=== PATIENT | female | born 1980 | race Caucasian/White ===

== ENCOUNTER 2019-04-17 12:31 | Outpatient (CLI) | payer BC, MEDICARE, SELFPAY ==
--- NOTE | ~2019-04-17 | US_ITS ---
EXAMINATION: US retroperitoneal comp EXAM DATE: 04/17/2019 13:09 INDICATION: Hematuria. TECHNIQUE: Multiple grayscale and Doppler images of the kidneys were obtained (by a technologist who performed the scan) and subsequently reviewed. There is no prior study for comparison. FINDINGS: Right kidney: There is normal contour and echogenicity. It measures 9.2 x 4.2 x 4.7 centimeters. Th ere are no focal renal lesions identified. There is no hydronephrosis. Left kidney: There is normal contour and echogenicity. It measures 8.2 x 4.8 x 4.6 centimeters. The re are no focal renal lesions identified. Mild hydronephrosis. Bladder unremarkable. Ureteral jets were identified bilaterally. IMPRESSION: 1. Mild left hydronephrosis, but both ureteral jets were confirmed. Reviewed, dictated and finalized at location A. RAM DIRECTOR/TRAFFIC DIRECTOR
== END 2019-04-17 12:32 | disposition home or self-care (01) ==
PROVIDERS: PCP Urology; Visit Provider Urology
DX: R31.29 Other microscopic hematuria (principal)
CPT/HCPCS: 76770

== ENCOUNTER → 2020-08-28 09:34 | Outpatient (CLI) | payer BC, MEDICARE, SELFPAY ==
--- NOTE | ~2020-08-28 | MM_ITS ---
EXAMINATION: MM screening priya BI w maria eugenia HISTORY: Screening mammogram TECHNIQUE: Craniocaudal and mediolateral oblique 3-D tomosynthesis images were obtained and synthetic 2-D images were generated. CAD analysis was submitted and interpreted. COMPARISON: 01/05/2019, 12/13/2018 BREAST PARENCHYMAL COMPOSITION: The breasts are heterogeneously dense, which may obscure small masses . FINDINGS: RIGHT BREAST: There is no evidence of suspicious mass, calcification, or architectural distortion to suggest malignancy. There has been no significant interval change. LEFT BREAST: There are low density masses in the anterior and middle thirds of the upper outer quadra nt of the breast 2 cm and 9 cm from the nipple, respectively. IMPRESSION: 1. Left breast masses which could reflect cysts given the multiplicity of cysts seen on prior diagnos tic mammogram 2. Additional mammographic views and possible breast ultrasound are recommended. BI-RADS Category 0: Incomplete: Needs additional imaging evaluation. Reviewed, dictated and finalized at location A. IMPRESSION: 1. Left breast masses which could reflect cysts given the multiplicity of cysts seen on prior diagnostic mammogram 2. Additional mammographic views and possible breast ultrasound are recommended . BI-RADS Category 0: Incomplete: Needs additional imaging evaluation.
== END ==
DX: Z12.31 Encounter for screening mammogram for malignant neoplasm of breast (principal); R92.8 Other abnormal and inconclusive findings on diagnostic imaging of breast
CPT/HCPCS: 77063; 77067

== ENCOUNTER → 2020-09-26 09:14 | Outpatient (CLI) | payer BC, MEDICARE, SELFPAY ==
--- NOTE | ~2020-09-26 | MMUS_ITS ---
EXAMINATION: MM diagnostic mammo unilat LT, US breast LT limited HISTORY: Left breast masses on screening mammogram TECHNIQUE: Additional 3-D tomosynthesis images of the left breast were performed and synthetic 2-D im ages were generated. CAD analysis was submitted and interpreted. High resolution limited left breast ultrasound was performed. COMPARISON: 08/28/2020, 01/05/2019, 12/13/2018 FINDINGS: MAMMOGRAPHIC FINDINGS: There is a 6 mm oval, obscured, low density mass in the middle third of the outer breast at the 3:00 location 8.5 cm from the nipple. There is a 7 mm oval, obscured, low density mass in the anterior thi rd of the slightly outer breast 2 cm from the nipple. ULTRASOUND: There are cysts in the upper outer quadrant of the breast at the 2:00 location 2 cm from the nipple, 2:00 location 1 cm from the nipple, and the 4:00 location 3 cm from the nipple. IMPRESSION: 1. No mammographic or sonographic evidence of malignancy. 2. Recommend routine screening mammography in one year. BI-RADS Category 2: Benign finding(s). Reviewed, dictated and finalized at location A. IMPRESSION: 1. No mammographic or sonographic evidence of malignancy. 2. Recommend routine screening mammography in one year. BI-RADS Category 2: Benign finding(s).
== END ==
DX: R92.8 Other abnormal and inconclusive findings on diagnostic imaging of breast (principal)
CPT/HCPCS: 76642; 77065

== ENCOUNTER 2021-06-12 13:22 | Outpatient (CLI) | payer BC, MEDICARE, SELFPAY ==
[2021-06-12 13:56] LABS: Potassium 4.9 mmol/L (3.5-5.1)
== END 2021-06-12 13:23 | disposition home or self-care (01) ==
PROVIDERS: Visit Provider Nurse Practitioner
DX: E87.5 Hyperkalemia (principal)
CPT/HCPCS: 36415; 84132

== ENCOUNTER 2022-02-03 18:16 | Emergency (ER) | payer BC, MEDICARE, SELFPAY ==
[2022-02-03 18:20] VITALS: BP 131/81; PULSE 98; RESP 16; TEMP 36.4; O2SAT 98
--- NOTE | 2022-02-03 18:38 | ED.FEMALEGU ---
HPI - Female Genitourinary General Chief complaint: Urogenital-Female Stated complaint: possible uti Time Seen by Provider: 02/03/22 18:36 Source: patient Mode of arrival: ambulatory Limitations: no limitations History of Present Illness HPI Narrative: 41-year-old female with a history of rheumatoid arthritis on methotrexate and Humira, recurrent urinary tract infection presents to the ER with a one week history of -- dysuria -- hematuria No fever. No flank pain. MD elicited complaint: dysuria and UTI Pertinent past history: recurrent UTIs Onset (ago): week(s) ( started 1 week ago) Location of symptoms: suprapubic Severity: mild Quality of pain: burning Consistency: intermittent Vaginal discharge: none Vaginal bleeding: none Urinary symptoms: Dysuria, Urgency, Frequency and Hematuria Exacerbating factors: none Relieving factors: none Associated symptoms: denies other symptoms Treatment prior to arrival: none Related Data Home Medications Medication Instructions Recorded Confirmed adalimumab 40 mg/0.4 mL 40 mg subcut WEEKLY 02/03/22 02/03/22 subcutaneous pen kit (Humira(CF) Pen) methotrexate sodium 2.5 mg tablet 2.5 mg PO DAILY 02/03/22 02/03/22 sertraline 100 mg tablet 100 mg PO DAILY 02/03/22 02/03/22 Allergies Allergy/AdvReac Type Severity Reaction Status Date / Time aspirin Allergy Mild OTHER Verified 02/03/22 18:28 Review of Systems Review of Systems: All systems reviewed & are unremarkable except as noted in HPI and below Constitutional: Constitutional: Reports as per HPI and Reports no additional constitutional complaints Eyes: Eyes: Reports as per HPI and Reports no additional eye complaints ENT: Reports system reviewed and no additional complaints, except as documented and Reports as per HPI Cardiovascular: Cardiovascular: Reports as per HPI and Reports no additional cardiovascular complaints Respiratory: Respiratory: Reports as per HPI and Reports no additional respiratory complaints Gastrointestinal: Gastrointestinal: Reports as per HPI and Reports no additional gastrointestinal complaints Genitourinary: Genitourinary: Reports no additional female genitourinary complaints, Reports as per HPI, Reports hematuria and Reports dysuria Comments: had Menstruation last week Musculoskeletal: Musculoskeletal: Reports no additional musculoskeletal complaints and Reports as per HPI Integumentary/Breasts: Skin/Breast: Reports system reviewed and no additional complaints, except as docu and Reports as per HPI Neurologic: Reports system reviewed and no additional complaints, except as documented and Reports as per HPI Psychiatric: Psychiatric: Reports no additional psychiatric complaints and Reports as per HPI Endocrine: Endocrine: Reports no additional endocrine complaints and Reports as per HPI Hematologic/Lymphatic: Hematologic/Lymphatic: Reports no additional hematologic/lymphatic complaints and Reports as per HPI Allergic/Immunologic: Allergic/Immunologic: Reports no additional allergic/immunologic complaints and Reports as per HPI [facility] Past Medical History Medical History (Updated 02/03/22 @ 19:56 by Jermaine Griffith MD) Recurrent UTI Rheumatoid arthritis Exam Const: General: no acute distress Nutritional Appearance: well nourished Orientation/consciousness: patient oriented x3 Limitations: no limitations HENMT: Head: normal to inspection Ears: external ears normal Face/Nose/Sinus: Normal external nose present Face and sinus: normal facial exam Mouth: Yes Normal oral and palatal mucosa present Throat: posterior oropharynx normal Eyes: Conjunctivae: conjunctivae normal Pupils: Equal, round and reactive pupils present Neck: Neck: normal visual inspection, no lymphadenopathy and no meningeal signs Chest: Chest palpation & inspection: normal inspection of the chest Resp: Effort & Inspection: normal respiratory effort Auscultation: clear to auscultation bilaterally
[2022-02-03 18:44] LABS: Add Urine Microscopic? NO; Appearance Urine Slightly Cloudy (Clear); Bilirubin Urine Negative (Negative); Blood Urine Negative (Negative); Color Urine Yellow (Yellow); Glucose Urine UA Negative (Negative); Ketones Urine Negative (Negative); Leukocyte Esterase Ur Negative (Negative); Nitrate Urine Negative (Negative); Protein Urine Negative (Negative); Specific Grav Ur >= 1.030 (1.010-1.020); Urobilinogen Urine 0.2 mg/dL (0.2-1.0)
[2022-02-03 18:49] LABS: Pregnancy On Board Control Positive; Urine Pregnancy Test Negative
[2022-02-03 19:06] LABS: Basophils Absolute Auto 0.05 K/mm3 (0.00-0.10); Basophils Percent Auto 0.7 % (0.0-1.0); Eosinophils Absolute Auto 0.15 K/mm3 (0.02-0.50); Hematocrit 42.9 % (35.0-49.0); Hemoglobin 13.5 g/dL (12.0-15.0); Immature Granulocyte Absolute 0.02 K/mm3 (0.00-0.00); Immature Granulocyte Percent A 0.3 % (0.0-0.0); Lymphocytes Percent Auto 32.6 % (18.0-42.0); Mean Corpuscular HGB Conc 31.5 g/dL (32.0-36.0); Mean Corpuscular Hemoglobin 29.2 pg (27.0-31.0); Mean Corpuscular Volume 92.7 fL (78.0-102.0); Mean Platelet Volume 9.4 fl (9.2-11.8); Monocytes Absolute Auto 0.71 K/mm3 (0.10-0.90); Monocytes Percent Auto 9.6 % (2.0-11.0); Neutrophils Percent Auto 54.8 % (50.0-70.0); Platelet Count Result 389 K/mm3 (150-420); Red Blood Count 4.63 M/mm3 (4.20-5.40); White Blood Count 7.4 K/mm3 (4.8-10.8)
[2022-02-03 19:21] LABS: Alanine Aminotransferase 24 U/L (14-59); Albumin Level 3.8 g/dL (3.4-5.0); Alkaline Phosphatase 73 U/L (46-116); Anion Gap 7 mmol/L (8-16); Aspartate Amino Transferase 16 U/L (15-37); Bilirubin,Total 0.2 mg/dL (0.00-1.00); Blood Urea Nitrogen 12 mg/dL (7-18); Calcium 8.8 mg/dL (8.5-10.1); Carbon Dioxide 29 mmol/L (21-32); Chloride 104 mmol/L (98-108); Estimated CRCL calculation 57 ml/min; Estimated Glomerular Filt Rate 60; Glucose 106 mg/dL (70-99); Osmolality Calculated 289 mOsm/kg (285-295); Partial Thromboplastin Time 27.4 SEC (23.90-30.70); Potassium 3.9 mmol/L (3.5-5.1); Prothrombin Time 10.7 Seconds (9.50-12.10); Sodium 140 mmol/L (136-145); Total Protein 7.7 g/dL (6.4-8.2)
[2022-02-03 20:05] VITALS: BP 122/76; PULSE 73; RESP 16; TEMP 37; O2SAT 100
== END 2022-02-03 20:08 | disposition home or self-care (01) ==
PROVIDERS: Emergency Provider Internal Medicine Critical Care Medicine
DX: R30.0 Dysuria (principal); M06.9 Rheumatoid arthritis, unspecified
CPT/HCPCS: 36415; 80053; 81003; 81025; 85025; 85610; 85730; 99283

== ENCOUNTER 2022-07-18 11:10 | Emergency (ER) | payer BC, MEDICARE, SELFPAY ==
--- NOTE | ~2022-07-18 | XR_ITS ---
EXAMINATION: XR chest 2V DATE: 07/18/2022 11:34 INDICATION: Cough. Hoarseness. TECHNIQUE: Frontal and lateral views of the chest were obtained. COMPARISON: Chest 2 views 05/08/2014, CT abdomen and pelvis 08/03/2018 FINDINGS: There is no pneumonia, pleural effusion, pneumothorax. The heart size is normal. IMPRESSION: 1. No acute cardiopulmonary disease. Reviewed, dictated and finalized at location A.
[2022-07-18 11:16] VITALS: BP 119/69; PULSE 95; RESP 16; TEMP 36.8; O2SAT 98
--- NOTE | 2022-07-18 12:02 | ED.GENADULT ---
HPI - General Adult General Chief complaint: Unspecified Stated complaint: sore throat Time Seen by Provider: 07/18/22 11:15 History of Present Illness HPI narrative: 42-year-old female here for evaluation of vocal hoarseness over the past several days. States that she feels a soreness in the back of her throat and feels a little tight. She denies any shortness of breath, trismus, history of allergic reactions. Has not taken any medicine for her symptoms. Also reports cough. Related Data Home Medications Medication Instructions Recorded Confirmed adalimumab 40 mg/0.4 mL 40 mg subcut WEEKLY 02/03/22 02/03/22 subcutaneous pen kit (Humira(CF) Pen) methotrexate sodium 2.5 mg tablet 2.5 mg PO DAILY 02/03/22 02/03/22 sertraline 100 mg tablet 100 mg PO DAILY 02/03/22 02/03/22 Allergies Allergy/AdvReac Type Severity Reaction Status Date / Time aspirin Allergy Mild OTHER Verified 07/18/22 11:17 Review of Systems Review of Systems: Gen: Denies fevers or chills Eyes: Denies eye pain or visual change ENT: Reports hoarseness Respiratory: Reports cough. Denies shortness of breath CV: Denies chest pain or palpitations GI: Denies abdominal pain nausea, emesis or diarrhea : denies burning, urgency, frequency or hematuria Musculoskeletal: Denies back pain or muscle pain Neuro: Denies numbness, tingling, weakness or focal weakness Skin: Denies rash Except as documented, all other systems reviewed and negative PMFSH Past Medical History Medical History Recurrent UTI Rheumatoid arthritis Exam Narrative: APPEARANCE: Well appearing, no pain in distress, well-nourished. Head: Normocephalic and atraumatic. EYES: PERRLA/EOMI, conjunctivae clear NOSE: No nasal drainage EARS: External ear normal in appearance THROAT: Oropharynx is clear. Mucous membranes are moist. No tonsillar swelling, exudates, uvular deviation. NECK: There is no adenopathy. Supple. Full range of motion of neck without pain. RESPIRATORY: Airway patent, respirations nonlabored. Clear to auscultation bilaterally, no rales, rhonchi, wheezing. CARDIOVASCULAR: Regular rate and rhythm without murmurs, rubs, or gallops. ABDOMINAL: Normoactive bowel sounds. Soft, nontender, nondistended. No rebound tenderness or guarding. MUSCULOSKELETAL: Extremities are warm and well-perfused. Moves all extremities well. No edema. NEURO: Normal speech. No focal neurologic deficits. SKIN: Skin is warm and dry. No rashes. PSYCHIATRIC: Normal affect/mood.. Course Vital Signs Vital signs: Vital Signs Temperature 98.2 F 07/18/22 11:16 Pulse Rate 95 07/18/22 11:16 Respiratory Rate 16 07/18/22 11:16 Blood Pressure 119/69 07/18/22 11:16 Pulse Oximetry 98 07/18/22 11:16 Oxygen Delivery Room Air 07/18/22 11:16 Temperature 98.2 F 07/18/22 11:16 Pulse Rate 95 07/18/22 11:16 Respiratory Rate 16 07/18/22 11:16 Blood Pressure 119/69 07/18/22 11:16 Pulse Oximetry 98 07/18/22 11:16 Oxygen Delivery Room Air 07/18/22 11:16 Medical Decision Making [facility] Narrative Medical decision making narrative: 42-year-old female here for evaluation of vocal hoarseness over the past several days with some cough. She sounds congested on exam and hoarse however her tonsils are not swollen, she has no lymphadenopathy, no signs or symptoms of strep. She was given steroids with improvement of her symptoms. Chest x-ray is clear. Likely laryngitis. Discharged home with return precautions. Vital Signs Vital Signs: Vital Signs Temperature 98.2 F 07/18/22 11:16 Pulse Rate 95 07/18/22 11:16 Respiratory Rate 16 07/18/22 11:16 Blood Pressure 119/69 07/18/22 11:16 Pulse Oximetry 98 07/18/22 11:16 Oxygen Delivery Room Air 07/18/22 11:16 Temperature 98.2 F 07/18/22 11:16 Pulse Rate 95 07/18/22 11:16 Respiratory Rate 16 07/18/22 11:16 Blood Pressure
== END 2022-07-18 12:11 | disposition home or self-care (01) ==
PROVIDERS: Emergency Provider Physician Assistant
DX: J04.0 Acute laryngitis (principal); M06.9 Rheumatoid arthritis, unspecified; Z87.891 Personal history of nicotine dependence
CPT/HCPCS: 71046; 96372; 99283; J1100